=== PATIENT | male | born 1995 | race African-American/Black ===

== ENCOUNTER 2017-12-06 12:15 | Emergency (ER) | payer OTHER ==
[~2017-12-06] VITALS: Ht 175.3 cm; Wt 82.6 kg
[2017-12-06 12:23] VITALS: BP 159/83
--- NOTE | 2017-12-06 12:27 | NUR ---
PT AMBULATED TO BED 3.
--- NOTE | 2017-12-06 12:30 | NUR ---
22/M BIB SELF C/O PAINFUL URINATION WITH PENILE PAIN X 3 DAYS. HX: APPENDECTOMY X 6 YRS AGO. DENIES N/V/D; SKIN IS PINK/WARM/DRY; AAOX4 WITH EVEN AND STEADY GAIT; LUNGS CLEAR BL. PATIENT STATES PAIN OF 6/10 AT THIS TIME. PATIENT POSITIONED FOR COMFORT; HOB ELEVATED; BEDRAILS UP X2; BED DOWN. ER MD MADE AWARE OF PT STATUS.
--- NOTE | 2017-12-06 13:42 | NUR ---
Dr. Kulkarni evaluating patient at bedside.
[2017-12-06 14:16] VITALS: BP 131/76
--- NOTE | 2017-12-06 14:16 | NUR ---
Patient discharged with BP 131/70 DENIES HOOKER AT THIS TIME. Written and verbal after care instructions given and explained. Patient verbalized understanding. Ambulatory with steady gait. All questions addressed prior to discharge. Advised to follow up with PMD.
== END 2017-12-06 14:16 | disposition home or self-care (01) ==
LOC: MED 12:15
DX: N48.89 Other specified disorders of penis (principal); R30.0 Dysuria; Z90.89 Acquired absence of other organs
CPT/HCPCS: 36415; 81002; 99283